=== PATIENT | male | born 1960 | race Caucasian/White ===

== ENCOUNTER 2017-06-02 10:30 | Emergency (ER) | payer BC, OTHER ==
[~2017-06-02] VITALS: Ht 180.3 cm; Wt 83.0 kg
[~2017-06-02 10:30] MED LIST: OXYC1TAB3 PO
[2017-06-02 10:38] VITALS: TEMP 36.7; Ht 180.3 cm; Wt 83.0 kg
[2017-06-02] MEDS ORDERED: IBUPROFEN 600 MG TAB PO STA (10:56)
--- NOTE | 2017-06-02 11:29 | EMERGENCY ROOM VISIT NOTE ---
ED Visit Note First contact with patient: 10:46 CHIEF COMPLAINT: Leg injury HISTORY OF PRESENT ILLNESS: This patient injured the leg yesterday, states that he had turned on his tractor and did not realize it was in gear. He was knocked down and the tractor ran over his left thigh and right foot/ankle. He has been able to walk on both legs, but states this increases his pain. He has not taken any medications for pain. He states "my made me come to get checked out." REVIEW OF SYSTEMS: No weakness or swelling of the knee or ankle, no previous serious injuries or surgery to this leg. No history of arthritis, syncopal episodes or generalized weakness. PMH: No significant prior leg injury. Healthy with no chronic diseases or history of major trauma or surgery. SOCIAL HISTORY: Patient lives at home. PHYSICAL EXAM: Vital Signs: Reviewed Nurse's notes. MENTAL STATUS: Alert, oriented, and cooperative. The left thigh is generally tender with some swelling, no ecchymosis or abrasions noted. The left knee and ankle are normal to inspection and there is no swelling or tenderness of either. There is swelling and tenderness on the dorsal and lateral aspect of the right foot, no significant swelling, ecchymosis, or erythema. There are several small skin abrasions noted to both legs. There is no deformity or fracture crepitus. Distal pulses 2+ with feet pink and warm, normal sensation and normal motor function in both legs. EMERGENCY DEPARTMENT COURSE: I examined the patient. Differential diagnosis includes fracture, dislocation, contusion, abrasion. X-ray of the left femur, left knee, and right ankle read by myself and radiologist, no acute bony abnormalities. X-ray of the right foot shows an old healing fracture of the fourth distal phalanx and an acute fracture of the fifth distal phalanx, no other acute injuries noted. Patient was updated on all results and plan for discharge. Patient was offered crutches, Sergey wrap, splint, all of which he declines, he states he "just wanted to be sure nothing was seriously injured." Patient was instructed to follow up with his PCP or orthopedics regarding his injuries, he verbalized understanding. Patient was discharged home in stable condition and ambulatory. Current/Historical Medications No Active Prescriptions or Reported Meds Allergies Coded Allergies: No Known Allergies (Unverified , 06/02/17) Vital Signs Date Time Temp Pulse Resp B/P (MAP) Pulse Ox O2 Delivery O2 Flow Rate FiO2 06/02/17 14:10 86 16 131/81 99 06/02/17 10:38 36.7 99 16 145/78 99 Medications Administered Medications (Trade) Dose Ordered Sig/Russel Route Start Time Stop Time Status Last Admin Dose Admin Ibuprofen (Motrin Tab) 600 mg NOW STAT PO 06/02/17 10:56 06/02/17 10:58 DC 06/02/17 11:10 600 MG Departure Information Impression Primary Impression: Fracture of fifth toe, right, closed Additional Impression: Contusion of left thigh, initial encounter Dispostion Home / Self-Care Condition GOOD Prescriptions No Active Prescriptions or Reported Meds Referrals Eugene Helms M.D. (PCP) Patient Instructions ED Contusion Lower Ext, ED Fx Toe Closed, [facility] Additional Instructions Ice and elevation to the injured areas for the next 24-48 hours to help reduce pain and swelling. Rest and stay off of your feet as much as possible for the next two days to allow healing. Tylenol or ibuprofen as needed for pain. Follow-up with your PCP or orthopedics in the next 5-7 days. Please return to the ER for severe worsening pain or swelling in your left thigh , fevers/chills/feeling ill, or any other concerns. Problem Qualifiers Primary Impression: Fracture of fifth toe, right, closed Encounter type: initial encounter Qualified Codes: S92.501A - Displaced unspecified fracture of right lesser toe(s), initial encounter for closed fracture
--- NOTE | 2017-06-02 11:42 | DIAGNOSTIC IMAGING REPORT ---
RIGHT FOOT MIN 3 VIEWS ROUTINE CLINICAL HISTORY: fall, run over by tractor, eval fx Right trauma. Pain. COMPARISON: None. DISCUSSION: Moderate degenerative change throughout. Fracture base proximal phalanx fifth toe. Probable old fracture proximal phalanx fourth toe. No evidence of dislocation. There is no evidence for soft tissue swelling. IMPRESSION: Nondisplaced fracture base proximal phalanx fifth toe. Old or subacute cortical fracture proximal phalanx fourth toe. The above report was generated using voice recognition software. It may contain grammatical, syntax or spelling errors. Electronically signed by: Eugene José M.D. 06/02/2017 11:41 AM Dictated Date/Time: 06/02/2017 11:40 AM
--- NOTE | 2017-06-02 11:43 | DIAGNOSTIC IMAGING REPORT ---
RIGHT ANKLE MIN 3 VIEWS ROUTINE CLINICAL HISTORY: fall, run over by tractor, eval fx Right trauma COMPARISON: None. DISCUSSION: The bones and joint spaces appear intact. There is no evidence of fracture, dislocation or bony disease. There is no evidence for soft tissue swelling. IMPRESSION: Negative study. The above report was generated using voice recognition software. It may contain grammatical, syntax or spelling errors. Electronically signed by: Eugene José M.D. 06/02/2017 11:42 AM Dictated Date/Time: 06/02/2017 11:42 AM
--- NOTE | 2017-06-02 11:43 | DIAGNOSTIC IMAGING REPORT ---
LEFT FEMUR 2 VIEWS ROUTINE CLINICAL HISTORY: fall, run over by tractor, eval fx trauma COMPARISON: None. DISCUSSION: The bones and joint spaces appear intact. There is no evidence of fracture, dislocation or bony disease. There is no evidence for soft tissue swelling. IMPRESSION: Negative study. The above report was generated using voice recognition software. It may contain grammatical, syntax or spelling errors. Electronically signed by: Eugene José M.D. 06/02/2017 11:41 AM Dictated Date/Time: 06/02/2017 11:41 AM
--- NOTE | 2017-06-02 11:44 | DIAGNOSTIC IMAGING REPORT ---
LEFT KNEE 1 OR 2 VIEWS ROUTINE CLINICAL HISTORY: fall, run over by tractor, eval fx trauma COMPARISON: None. DISCUSSION: The bones and joint spaces appear intact. There is no evidence of fracture, dislocation or bony disease. There is no evidence for soft tissue swelling. IMPRESSION: Negative study. The above report was generated using voice recognition software. It may contain grammatical, syntax or spelling errors. Electronically signed by: Eugene José M.D. 06/02/2017 11:43 AM Dictated Date/Time: 06/02/2017 11:42 AM
[2017-06-02 14:10] VITALS: BP 131/81; PULSE 86; O2SAT 99
== END 2017-06-02 14:11 | disposition home or self-care (01) ==
LOC: C.EDB 10:31 → C.EDD 14:11
DX: S92.501A Displaced unspecified fracture of right lesser toe(s), initial encounter for closed fracture (principal); S70.12XA Contusion of left thigh, initial encounter; W30.89XA Contact with other specified agricultural machinery, initial encounter